=== PATIENT | female | born 1965 | race Caucasian/White ===

== ENCOUNTER → 2023-09-13 11:13 | Outpatient (REF) | payer OTHER, SELFPAY | LOC: MRI 3T 11:13 | PROVIDERS: ATTENDING PHYSICIAN Family Medicine; FAMILY PHYSICIAN Physician Assistant Medical | DX: M25.511 Pain in right shoulder (principal) | CPT/HCPCS: 73221 ==

== ENCOUNTER 2023-10-10 14:35 | Emergency (ER) | payer OTHER, SELFPAY ==
[2023-10-10 14:51] VITALS: BP 136/77
[2023-10-10 16:23] VITALS: BMI 25.4
--- NOTE | 2023-10-10 16:26 | ED.GENMED ---
History of Present Illness
General
Chief Complaint: Fall
Source: patient
Exam Limitations: none
Time Seen by Provider: 10/10/23 16:04
Nursing documentation reviewed up to this point in time: agreed with
Travel History
Have you had any contact with someone who has COVID-19?: No
Do you have any symptoms of coronavirus? Fever > 100 degrees, chills, cough, shortness of breath, sore throat, loss of taste or smell, muscle aches, or headache?: No
History of Present Illness
History of Present Illness:
58-year-old female presents to the ER for ration of fall. Patient reports she has a history of cerebral palsy and was using a cane in a parking lot when she lost her balance and fell back hitting the back of her head. She denies loss of
consciousness but did feel nauseous and woozy after. She does report the police and EMS arrived to scene. She is not on blood thinners. She denies any headache but does complain of soreness to the back of her head. She does complain of her neck
feeling sore. She is unsure of last tetanus. She denies any upper or lower extremity pain.
Past History
Past History
ED Past Medical History: Other (Cerebral palsy)
Social History
Tobacco: Non-smoker
Living: with family (Lives with son)
Review of Systems
Review of Systems
Allergies reviewed?: Yes
All Other Systems: ROS reviewed and negative except as documented in HPI and ROS
Constitutional: Reports no symptoms; Denies fever, fatigue or chills
EENT: Reports no symptoms
Respiratory: Reports no symptoms
Cardiac: Reports no symptoms
ABD/GI: Reports nausea; Denies vomiting
: Reports no symptoms
Musculoskeletal: Reports other (neck is sore ); Denies back pain
Skin: Reports other (laceration/abrasion to head )
Neurological: Reports other ( no loss of consciousness ); Denies headache
Hematologic/Lymphatic: Reports no symptoms
Psychiatric: Reports no symptoms
Phy Exam
General Physical Exam
General Presentation: no apparent distress and mild distress
General age: appears stated age
General Skin: warm and dry
General Habitus: normal
General Mental: alert
General Hydration: appears well hydrated
Neurological Exam
Neurological Exam: alert, oriented x3 and speech normal
[place] Coma Scale
Eye Opening: Spontaneous
Verbal Response: Oriented
Motor Response: Obeys Commands
GCS Total Score: 15
Musculoskeletal Exam
Musculoskeletal Exam: full ROM
Skin Exam
Skin Exam: normal color, warm/dry and other (no hematoma to scalp + small posterior abrasion no bleeding )
Psychiatric Exam
Psychiatric Exam: normal mood/affect
Course
Orders/Labs/Results
Orders:
Orders
10/10/23 16:25
CT Cervical Spine W/o Iv Contr Urgent
Comment:
Reason For Exam: trauma
CT Head W/o Iv Contrast Urgent
Comment:
Reason For Exam: trauma
Tetanus/Diphth/Acelpertussis [Adacel] 0.5 ml IM .ONCE ONE
10/10/23 19:37
Vital Signs- Treatment ONCE
Frequency: Once
Vital Signs
Initial and Last Documented VS:
Initial Vital Signs
Temp Pulse Resp BP Pulse Ox
98.1 F 92 16 136/77 98
10/10/23 14:51 10/10/23 14:51 10/10/23 14:51 10/10/23 14:51 10/10/23 14:51
Last Documented Vital Signs
Temp Pulse Resp BP Pulse Ox
97.9 F 88 16 122/68 99
10/10/23 19:38 10/10/23 19:38 10/10/23 19:38 10/10/23 19:38 10/10/23 19:38
MDM/Problems Addressed
Differential Diagnosis Includes:
not limited to: head injury , abasion
MDM/Problems Addressed:
Symptoms are consistent with head injury. Patient is not on blood thinners no nausea vomiting no bony cervical spine tenderness small abrasion to posterior occiput. Patient has a normal neurologic exam well-appearing. Up-to-date on tetanus. CT
head and cervical spine negative wound care reviewed.
Chronic conditions affecting care:
cerebral palsy, uses cane
*Critical Care Note
Total Time (30-74mins, 75-104mins- exclusive of procedures): Not Applicable
ED Attending Note
-
Portions of this chart may have been created with voice recognition software.� Occasional wrong word or��sound alike� substitutions may have occurred due to the inherent limitations of voice recognition software.
Discharge Plan
Departure
Patient Disposition: Home (Routine Discharge)
Date of Disposition: 10/10/23
Time of Disposition: 19:36
Patient with high blood pressure during this ER visit?: Yes
Condition: Fair
Discharge Problem:
Head injury, acute, Abrasion
Instructions: Head Injury in Adults (DC), Skin Abrasions (DC), BLOOD PRESSURE
Referrals:
Trudy Bhat PA-C [Family Provider] -
Activity Restrictions/Additional Instructions:
Wash abrasion with soap and water twice a day apply small layer of antibiotic ointment to the area. See family doctor in the next 2 to 3 days for reevaluation. You alternate between ibuprofen and Tylenol for discomfort.
Return if any worsening of symptoms.
Interventions
Interventions:
*Risk Screen - Suicide Last Done: 10/10/23 16:24
*General Assessment Last Done: 10/10/23 16:24
*Neglect/Abuse Screening Last Done: 10/10/23 16:24
*ED COVID-19 Vaccine History Last Done: 10/10/23 14:51
ED-Musculoskeletal Assessment Last Done: 10/10/23 16:26
ED- Neurological Assessment Last Done: 10/10/23 16:12
ED-Skin Assessment Last Done: 10/10/23 18:35
[2023-10-10] MEDS: ADACEL 0.5 ML IM (18:27)
[2023-10-10 19:38] VITALS: BP 122/68
== END 2023-10-10 20:13 | disposition home or self-care (01) ==
LOC: EMR 14:35
PROVIDERS: EMERGENCY PHYSICIAN Student in an Organized Health Care Education/Training Program; FAMILY PHYSICIAN Physician Assistant Medical
DX: S09.90XA Unspecified injury of head, initial encounter (principal); S00.01XA Abrasion of scalp, initial encounter; W19.XXXA Unspecified fall, initial encounter; G80.8 Other cerebral palsy; R03.0 Elevated blood-pressure reading, without diagnosis of hypertension; Z23 Encounter for immunization
CPT/HCPCS: 99284; 90471; 70450; 72125; 90715

== ENCOUNTER → 2024-05-09 09:38 | Outpatient (REF) | payer OTHER, SELFPAY | LOC: RCS 09:38 | PROVIDERS: ATTENDING PHYSICIAN Specialist; FAMILY PHYSICIAN Physician Assistant Medical | DX: Z01.818 Encounter for other preprocedural examination (principal) | CPT/HCPCS: 93005 ==

== ENCOUNTER → 2025-01-20 07:48 | Outpatient (REF) | payer OTHER, SELFPAY | LOC: HWWDC 07:48 | PROVIDERS: ATTENDING PHYSICIAN Physician Assistant Medical; REFERRING PHYSICIAN Nurse Practitioner Adult Health | DX: Z12.31 Encounter for screening mammogram for malignant neoplasm of breast (principal) | CPT/HCPCS: 77063; 77067 ==

== ENCOUNTER → 2025-02-02 08:55 | Outpatient (REF) | payer OTHER, SELFPAY | LOC: HWRAD 08:55 | PROVIDERS: ATTENDING PHYSICIAN Nurse Practitioner Adult Health; FAMILY PHYSICIAN Physician Assistant Medical | DX: Z78.0 Asymptomatic menopausal state (principal) | CPT/HCPCS: 77080 ==

== ENCOUNTER → 2025-02-03 09:42 | Outpatient (REF) | payer OTHER, SELFPAY | LOC: WDC 09:42 | PROVIDERS: ATTENDING PHYSICIAN Physician Assistant Medical | DX: R92.8 Other abnormal and inconclusive findings on diagnostic imaging of breast (principal) | CPT/HCPCS: 76642 ==